=== PATIENT | female | born 1995 | race Hispanic/Latino ===

== ENCOUNTER 2022-02-14 22:27 | Observation (INO) | payer MEDICAID ==
[~2022-02-14] VITALS: Ht 149.9 cm; Wt 79.4 kg
[~2022-02-14 22:27] MED LIST: IBUP-2070 PO; PREN-61 PO
[2022-02-14 22:28] VITALS: BP 119/75
[2022-02-14] MEDS ORDERED: LACTATED RINGERS 1000ML 1,000 ML IV SCH (23:00)
[2022-02-14 23:32] LABS: APPEARANCE,URINE CLEAR (CLEAR); BILIRUBIN,URINE NEGATIVE (NEGATIVE); COLOR,URINE LIGHT-YELLOW (YELLOW); GLUCOSE, URINE (UA) NEGATIVE (NEGATIVE); KETONES,URINE NEGATIVE (NEGATIVE); LEUKOCYTE ESTERASE ,URINE NEGATIVE Leu/uL (NEGATIVE); NITRATE,URINE NEGATIVE (NEGATIVE); OCCULT BLOOD,URINE NEGATIVE (NEGATIVE); PROTEIN,URINE NEGATIVE (NEGATIVE); UROBILINOGEN,URINE 0.2 mg/dL (0.2-1.0)
[2022-02-14] MEDS ORDERED: PREN1TAB80 PO (23:54)
[2022-02-14] MEDS ORDERED: PROMETHAZINE HCL 25 MG/ML 1ML AMPULE ONE (23:58)
[2022-02-14] MEDS ORDERED: MEPERIDINE-PF 25 MG/ML SYG ONE (23:59)
[2022-02-15] MEDS ORDERED: MEPERIDINE-PF 25 MG/ML SYG IVP PRN
[2022-02-15] MEDS ORDERED: PROMETHAZINE HCL 25 MG/ML 1ML AMPULE IM ONE
[2022-02-15 00:26] LABS: AMPHET/METH SCREEN,URINE NEGATIVE (NEGATIVE); BARBITURATE SCREEN, URINE NEGATIVE (NEGATIVE); BENZODIAZEPINES SCREEN,URINE NEGATIVE (NEGATIVE); CANNABINOID SCREEN,URINE NEGATIVE (NEGATIVE); COCAINE SCREEN,URINE NEGATIVE (NEGATIVE); OPIATE SCREEN,URINE NEGATIVE (NEGATIVE); PHENCYCLIDINE SCREEN,URINE NEGATIVE (NEGATIVE)
== END 2022-02-15 05:38 | disposition home or self-care (01) ==
LOC: EDH 22:27 → LDH 22:37
PROVIDERS: ADMIT Obstetrics & Gynecology; ATTEND Obstetrics & Gynecology
DX: O99.891 Other specified diseases and conditions complicating pregnancy (principal); M54.50 Low back pain, unspecified; R10.30 Lower abdominal pain, unspecified; O62.9 Abnormality of forces of labor, unspecified; O26.893 Other specified pregnancy related conditions, third trimester; R10.2 Pelvic and perineal pain; O36.8130 Decreased fetal movements, third trimester, not applicable or unspecified; Z3A.38 38 weeks gestation of pregnancy; Z98.891 History of uterine scar from previous surgery; Z79.899 Other long term (current) drug therapy
CPT/HCPCS: 96361 ×3; 59025; 80305; 81003; 96374; 96372; G0378 ×7; G0379; J7120; J2550; J2175; 96360